=== PATIENT | female | born 1995 | race Caucasian/White ===

== ENCOUNTER 2019-10-04 08:58 | Emergency (ER) | payer SELFPAY ==
[~2019-10-04] VITALS: Ht 172.7 cm; Wt 108.3 kg
[2019-10-04 10:37] LABS: CLARITY URINE CLOUDY (CLEAR); COLOR URINE DARK YELLOW (YELLOW); KETONES URINE TRACE (NEGATIVE); LEUKOCYTE ESTERASE URINE 1+ (NEGATIVE); NITRITE URINE NEGATIVE (NEGATIVE); OCCULT BLOOD URINE NEGATIVE (NEGATIVE); PROTEIN URINE TRACE (NEGATIVE)
[2019-10-04 11:38] VITALS: BP 132/82
== END 2019-10-04 11:42 | disposition home or self-care (01) ==
LOC: ER 08:58
DX: N39.0 Urinary tract infection, site not specified (principal); R51 Headache; Z03.818 Encounter for observation for suspected exposure to other biological agents ruled out
CPT/HCPCS: 81003; 81025; 99283; C9803; U0003